=== PATIENT | male | born 1980 | race Two or more races ===

== ENCOUNTER 2024-03-25 22:38 | Inpatient (IN) | payer OTHER ==
[2024-03-25 23:19] VITALS: BMI 34.9
[2024-03-26] MEDS ORDERED: LOPERAMIDE HCL 2 MG CAPSULE PO PRN (02:33)
[2024-03-26] MEDS ORDERED: NICOTINE POLACRILEX 2 MG GUM BUC PRN (02:33)
[2024-03-26] MEDS ORDERED: BENZOCAINE/MENTHOL (CHLORASEPTIC ) LOZENGE MM PRN (02:33)
[2024-03-26] MEDS ORDERED: NALOXONE (NARCAN) HCL 4 MG/0.1 ML SPRAY NS PRN (02:33)
[2024-03-26] MEDS ORDERED: guaiFENesin 600 MG TABLET.ER (FP) PO PRN (02:33)
[2024-03-26] MEDS ORDERED: IBUPROFEN 600 MG TABLET (FP) PO PRN (02:33)
[2024-03-26] MEDS ORDERED: IBUPROFEN 400 MG TABLET (FP) PO PRN (02:33)
[2024-03-26] MEDS ORDERED: MAG HYDROX/AL HYDROX/SIMETH 30 ML UNIT-DOSE CUP PO PRN (02:33)
[2024-03-26] MEDS ORDERED: BENZONATATE 200 MG CAPSULE PO PRN (02:33)
[2024-03-26] MEDS ORDERED: NALOXONE HCL 0.4 MG/ML VIAL IM PRN (02:33)
[2024-03-26] MEDS ORDERED: BISMUTH SUBSALICYLATE 524 MG/30 ML PO PRN (02:33)
[2024-03-26] MEDS ORDERED: DICYCLOMINE HCL 10 MG CAPSULE PO PRN (02:33)
[2024-03-26] MEDS: METHOCARBAMOL 500 MG TABLET PO PRN (03:23)
[2024-03-26] MEDS: ACETAMINOPHEN 325 MG TABLET (FP) PO PRN (03:24)
[2024-03-26] MEDS ORDERED: methaDONE HCL 10 MG TABLET PO SCH (08:15)
[2024-03-26] MEDS: DIVALPROEX SODIUM 500 MG TABLET E.C. PO SCH ×2 (09:56→13:14)
[2024-03-26] MEDS: NICOTINE 21 MG/24 HOURS TOPICAL PATCH TD SCH (09:57)
[2024-03-26] MEDS: PRENATAL VITAMINS W/ FOLIC ACID TABLET (FP) PO SCH (10:00)
[2024-03-26] MEDS: diazePAM 5 MG TABLET PO SCH (10:52)
[2024-03-26] MEDS: GABAPENTIN 400 MG CAPSULE PO SCH (13:17)
[2024-03-26] MEDS: diazePAM 5 MG TABLET PO PRN (15:09)
[2024-03-26] MEDS ORDERED: DIVALPROEX SODIUM 250 MG TABLET E.C. PO SCH (22:00)
[2024-03-26] MEDS: traZODone HCL 50 MG TABLET (FP) PO SCH (22:27)
[2024-03-26] MEDS: MELATONIN 5 MG TABLETS PO SCH (22:27)
[2024-03-26] MEDS: THIAMINE 100 MG TABLET PO SCH (22:29)
[2024-03-27] MEDS: ONDANSETRON *ODT* 4 MG TABLET SL PRN (05:22)
[2024-03-27] MEDS: DIVALPROEX SODIUM 250 MG TABLET E.C. PO SCH (09:25)
[2024-03-27 13:50] LABS: HEMATOCRIT 42.3 % (35.4-49); HEMOGLOBIN 14.5 GM/dL (11.7-16.9); MCH 30.7 pg (25.7-33.7); MCHC 34.2 g/dl (32.0-35.9); MEAN CELL VOLUME 89.8 fl (80-96); MEAN PLT VOLUME 10.2 fl (7.5-11.1); PLATELET COUNT 201 10^3/uL (134-434); RDW 14.3 % (11.9-15.9)
[2024-03-27] MEDS: hydrOXYzine PAMOATE 25 MG CAPSULE (FP) PO PRN (14:09)
[2024-03-27 14:26] LABS: POTASSIUM 4.2 mmol/L (3.5-5.1)
[2024-03-27 14:31] LABS: ALBUMIN 3.5 g/dl (3.4-5.0); BLOOD UREA NITROGEN 8.3 mg/dL (7-18)
[2024-03-27 14:33] LABS: CREATININE 0.6 mg/dL (0.55-1.3)
[2024-03-27 14:35] LABS: BILIRUBIN,TOTAL 0.4 mg/dL (0.2-1); TOT PROT 7.2 g/dl (6.4-8.2)
[2024-03-27] MEDS: GABAPENTIN 300 MG CAPSULE PO SCH (17:24)
[2024-03-28] MEDS: diazePAM 5 MG TABLET PO SCH (05:15)
[2024-03-28] MEDS: MAGNESIUM HYDROX 2400MG/30ML ORAL SUSPENSION 30 ML CUP PO PRN (15:36)
[2024-03-29] MEDS: diazePAM 5 MG TABLET PO SCH (05:37)
[2024-03-29] MEDS: METHYL SALICYLATE/MENTHOL 30 GM TUBE TP SCH (09:37)
[2024-03-29] MEDS: POLYETHYLENE GLYCOL (HEALTHYLAX) 3350 17 GM PACKET PO PRN (13:27)
[2024-03-30] MEDS: diazePAM 5 MG TABLET PO ONE (05:32)
[2024-03-30 08:36] VITALS: BP 107/60; PULSE 75; RESP 20; TEMP 97.7
== END 2024-03-30 13:13 | disposition other institution (70) | DRG 773 ==
LOC: YASAS 22:38 → Y3N 03-26 02:47
PROVIDERS: ADMIT Allergy & Immunology; ATTEND Surgery
PROC: HZ2ZZZZ Detoxification Services for Substance Abuse Treatment (ICD-10-PCS; principal; 2024-03-26)
DX: F11.23 Opioid dependence with withdrawal (principal); F10.20 Alcohol dependence, uncomplicated; F13.20 Sedative, hypnotic or anxiolytic dependence, uncomplicated; F17.210 Nicotine dependence, cigarettes, uncomplicated; G40.909 Epilepsy, unspecified, not intractable, without status epilepticus
CPT/HCPCS: 36415; 80053; 80305; 80307; 85027; 86780; 93005; 93010; Q0162